=== PATIENT | female | born 1975 | race Caucasian/White ===

== ENCOUNTER 2019-07-13 12:43 | Emergency (ER) | payer OTHER, SELFPAY ==
[2019-07-13 14:46] VITALS: BP 114/62; PULSE 60; RESP 16; TEMP 36.6; O2SAT 100
--- NOTE | 2019-07-13 15:50 | ED.GENADULT ---
HPI - General Adult General Chief complaint: Upper Respiratory Infection Stated complaint: Sore throat cough Time Seen by Provider: 07/13/19 15:50 Source: patient and RN notes reviewed Mode of arrival: ambulatory Limitations: no limitations History of Present Illness HPI narrative: 43-year-old female presents with complaints of upper respiratory infection symptoms, nausea, vomiting, and intermittent abdominal pain, sore throat, sinus congestion, cough, and intermittent headache (not the worst of her life) for 1 day. No treatment. Dry coughing with intermittent productive cough (brown phlegm). Rhinorrhea and nasal congestion. Sore throat bilateral. Hurts to swallow. No voice change. No high fevers, drooling, neck or throat swelling. Exacerbating factors consist of smoke exposure. Nausea, vomiting, and abdominal pain (no abdominal pain @11:00) without blood or coffee ground emesis. Last emesis this morning approximately @02:00. Denies diarrhea, LMP today normal without blood. Tolerating po intake well. Denies dysuria or hematuria. Denies chest pain, dyspnea, coughing up blood, difficulty swallowing, jaw pain, dental pain, facial pain, foreign body sensation, and rash. Remains active. Marlena denies being , LMP 07/03/19. She also says she missed her group drug meeting today and needs a return to note for the meeting. Some parts of this dictation were generated by voice recognition software and may contain typographical and/or grammatical inaccuracies. Related Data Home Medications Medication Instructions Recorded Confirmed buprenorphine [Sublocade] 300 mg SUBCUT WEEKLY 07/13/19 07/13/19 Allergies Allergy/AdvReac Type Severity Reaction Status Date / Time No Known Allergies Allergy Verified 07/13/19 15:32 Review of Systems Review of Systems: Narrative: CONSTITUTIONAL: Denies fever, chills, sweats. EYES: Denies visual changes, redness, discharge. ENT: Complains of rhinorrhea, congestion, sore throat. Denies otalgia. CARDIOVASCULAR: Denies chest pain, palpitations, edema. RESPIRATORY: Denies dyspnea, wheezing. Complains of dry cough,intermittent productive cough. GASTROINTESTINAL: Complains of abdominal pain, nausea, vomiting. Denies diarrhea. GENITOURINARY: Denies dysuria, hematuria, abnormal discharge SKIN: Denies rash or itching. MUSCULOSKELETAL: Denies acute back pain, joint pain, or myalgia. NEUROLOGIC: Denies numbness or focal weakness. PSYCHIATRIC: Denies anxiety or depression. All systems reviewed & are unremarkable except as noted in HPI and below. [facility] Past Medical History Medical History (Updated 07/14/19 @ 00:00 by Stormy Pearl) Substance abuse Surgical History Surgical History (Updated 07/13/19 @ 15:59 by JUVENCIO Zavala) History of repair of anterior cruciate ligament of left knee History of tubal ligation Family History Family History (Updated 07/13/19 @ 15:59 by JUVENCIO Zavala) Other No significant family history Social History Social History (Updated 07/13/19 @ 16:00 by JUVENCIO Zavala) Smoking status: Current every day smoker Tobacco type: cigarettes Second hand tobacco smoke exposure: Yes Alcohol intake: former Substance use: former Substance use type: former substance user Other substance usage details: Marlena says 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 There is no relevant family history pertinent to the presenting complaint. Exam Narrative: Exam Narrative: GENERAL: This is a well-nourished, well-developed patient, in no apparent distress. Speaks in full sentences and ambulates with steady gait without dyspnea. HEAD: normocephalic, atraumatic. EYES: PERRL. Sc
== END 2019-07-13 16:05 | disposition home or self-care (01) ==
PROVIDERS: Emergency Provider Nurse Practitioner Family
DX: B34.9 Viral infection, unspecified (principal); F17.210 Nicotine dependence, cigarettes, uncomplicated
CPT/HCPCS: 99203; G0463

== ENCOUNTER 2020-01-10 08:46 | Emergency (ER) | payer OTHER, SELFPAY ==
[2020-01-10 08:52] VITALS: BP 102/62; PULSE 61; RESP 14; TEMP 36.9; O2SAT 99
--- NOTE | 2020-01-10 08:53 | ED.DENTAL ---
HPI - Dental/Oral General Chief complaint: Dental/Oral Stated complaint: tooth pain/broken tooth Time Seen by Provider: 01/10/20 09:02 Source: patient and RN notes reviewed Mode of arrival: ambulatory Limitations: no limitations History of Present Illness HPI Narrative: 44-year-old female presents with concern for left lower dentalgia. Reports broken teeth, chronic missing teeth in that area. She denies difficulty swallowing, drooling, fever, malaise, foul taste. Reports she has had infections in this area before reports she has been unable to see dentist. MD Complaint: tooth pain Related Data Allergies Allergy/AdvReac Type Severity Reaction Status Date / Time No Known Allergies Allergy Verified 07/13/19 15:32 Review of Systems Review of Systems: Narrative: CONSTITUTIONAL: Denies malaise, chills, sweats, or fever. ENT: Denies rhinorrhea, congestion, sinus pain, otalgia or sore throat. Reports left lower dental pain and swelling CARDIOVASCULAR: Denies chest pain, palpitations RESPIRATORY: Denies cough or dyspnea. GASTROINTESTINAL: Denies abdominal pain, nausea, vomiting MUSCULOSKELETAL: Denies myalgia. NEUROLOGIC: Denies headache. All systems reviewed & are unremarkable except as noted in HPI and below PMFSH Past Medical History Medical History (Updated 01/10/20 @ 09:09 by Radha Vee NP) Substance abuse Surgical History Surgical History (Updated 07/13/19 @ 15:59 by JUVENCIO Zavala) History of repair of anterior cruciate ligament of left knee History of tubal ligation Family History Family History (Updated 07/13/19 @ 15:59 by JUVENCIO Zavala) Other No significant family history Social History Social History (Updated 07/13/19 @ 16:00 by JUVENCIO Zavala) Smoking status: Current every day smoker Tobacco type: cigarettes Second hand tobacco smoke exposure: Yes Alcohol intake: former Substance use: former Substance use type: former substance user Other substance usage details: Marlena says 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 There is no relevant family history pertinent to the presenting complaint Exam Narrative: Exam Narrative: GENERAL: Well-appearing, well-nourished, and in no acute distress. HEAD: Normocephalic, atraumatic. EYES: PERRLA, conjunctivae clear ENT: Nares clear. Mucous membranes moist. Oropharynx without erythema edema, or lesions. Missing teeth, broken teeth. Teeth 22, 21, 20, 19 broken, no periapical abscess noted, no gumline edema or erythema. Mild left lower jaw swelling noted NECK: Supple. No lymphadenopathy. CHEST: No respiratory distress. Speaks in full sentences. HEART: Regular rate and rhythm. SKIN: Warm, dry, no rash. NEURO: Alert and oriented x3. PSYCH: Normal mood and affect Course Course Emergency Course: Patient is aware of diagnosis, understands and agrees to treatment plan. Anticipatory guidance given. Patient agrees to follow-up as directed and is aware of reasons to seek care at the emergency department. Portions of this record may have been created with voice recognition software Vital Signs Vital signs: Vital Signs Temperature 98.4 F 01/10/20 08:52 Pulse Rate 61 01/10/20 08:52 Respiratory Rate 14 01/10/20 08:52 Blood Pressure 102/62 01/10/20 08:52 Pulse Oximetry 99 01/10/20 08:52 Temperature 98.4 F 01/10/20 08:52 Pulse Rate 61 01/10/20 08:52 Respiratory Rate 14 01/10/20 08:52 Blood Pressure 102/62 01/10/20 08:52 Pulse Oximetry 99 01/10/20 08:52 Reviewed. MDM - Dental/Oral MDM Narrative Medical decision making narrative: Patients pain and complaint coupled with physical findings are consistant with dentalgia. There are no focal signs of space occupying lesions that are compromising to the air
== END 2020-01-10 09:20 | disposition home or self-care (01) ==
PROVIDERS: Emergency Provider Nurse Practitioner
DX: K08.89 Other specified disorders of teeth and supporting structures (principal); F17.210 Nicotine dependence, cigarettes, uncomplicated
CPT/HCPCS: 99213; G0463

== ENCOUNTER 2020-12-11 14:08 | Emergency (ER) | payer OTHER, SELFPAY ==
[2020-12-11 14:21] VITALS: BP 118/63; PULSE 64; RESP 18; TEMP 37.2; O2SAT 100
--- NOTE | 2020-12-11 15:06 | ED.GENADULT ---
HPI - General Adult General Chief complaint: Urogenital-Female Stated complaint: Possible UTI Time Seen by Provider: 12/11/20 15:06 Source: patient and RN notes reviewed Mode of arrival: ambulatory Limitations: no limitations History of Present Illness HPI narrative: 45-year-old female presents with urinary complaints for the past 3-4 days. ?Marlena reports increasing urinary complaints and tactile fever over the past 2 days. ? Dysuria consists of cloudy urine, pressure, frequency, flank pain, and urgency. ?Azo, one dose of leftover Amoxicillin, cranberry juice, and increasing intake of water without relief. ?History of UTIs. No significant pelvic pain. ?No vaginal discharge. ?No concerns for STDs. Exacerbating factors urinating. ?Denies hematuria or vaginal bleeding. ?LMP 2 weeks ago. ?Intermittent nausea without vomiting and abdominal pain.? Tolerating liquids well.? Remains active. ?The patient reports she has not been diagnosed with COVID-19. ?The patient reports she received the [employer] COVID-19 vaccine. The patient reports she is not waiting for the results of a COVID-19 lab test. ?The patient reports he does not have chills, weakness, or fatigue. ?The patient reports he does not have a new or worsening cough or shortness of breath. Denies chest pain. ?The patient reports he does not have any rhinorrhea, congestion, loss of taste or smell, sore throat, and diarrhea. ?Denies recent traveling. ?Denies concerns for COVID-19 or exposures. ?At this time, the patient is not suspected of having COVID-19.?? Some parts of this dictation were generated by voice recognition software and may contain typographical and/or grammatical inaccuracies. Related Data Home Medications Medication Instructions Recorded Confirmed buprenorphine-naloxone See Rx Instructions .ROUTE .COMPLEX 12/11/20 12/11/20 naloxone [Narcan] See Rx Instructions .ROUTE .COMPLEX 12/11/20 12/11/20 Allergies Allergy/AdvReac Type Severity Reaction Status Date / Time codeine Allergy Unknown Unknown Verified 12/11/20 14:37 doxycycline AdvReac Nausea and Verified 12/11/20 14:49 Vomiting Review of Systems Review of Systems: CONSTITUTIONAL: Denies chills, sweats. Complains of tactile fever. EYES: Denies visual changes, redness, discharge. ENT: Denies rhinorrhea, congestion, sore throat, otalgia. CARDIOVASCULAR: Denies chest pain, palpitations, edema. RESPIRATORY: Denies dyspnea, wheezing, cough. GASTROINTESTINAL: Denies abdominal pain, vomiting, diarrhea. Complains of intermittent nausea. GENITOURINARY: Complains of dysuria (cloudy, frequency, pressure, and urgency). Denies hematuria, abnormal discharge. SKIN: Denies rash or itching. MUSCULOSKELETAL: Denies acute back pain, joint pain, or myalgia. Complains of flank pain. NEUROLOGIC: Denies numbness or focal weakness. PSYCHIATRIC: Denies anxiety or depression. All systems reviewed & are unremarkable except as noted in HPI and below. [facility] Past Medical History Medical History (Updated 12/12/20 @ 00:01 by Stormy Pearl) Smoker Substance abuse Vaginal delivery X2 Surgical History Surgical History History of repair of anterior cruciate ligament of left knee History of tubal ligation Family History Family History (Updated 12/11/20 @ 15:18 by JUVENCIO Zavala) Other No significant family history Father Hypertension Mother Heart disease Social History Social History (Updated 12/11/20 @ 15:19 by JUVENCIO Zavala) Smoking packs per day: 0.25 Smoking cigarettes per day: 5.0 Years smoked: 25 Smoking pack-years: 6.25 Smoking status: Current every day smoker Tobacco type: cigarettes Second hand tobacco smoke exposure: Yes Alcohol intake: former Substance use: former Substance use type: former substance user Other substance usage details: Marlena says she used to use heroin and fentany
== END 2020-12-11 15:25 | disposition home or self-care (01) ==
PROVIDERS: Emergency Provider Nurse Practitioner Family
DX: R30.0 Dysuria (principal); F17.210 Nicotine dependence, cigarettes, uncomplicated
CPT/HCPCS: 81003; 87077; 87086; 87088; 87186; 99213; G0463

== ENCOUNTER 2021-11-06 17:34 | Emergency (ER) | payer OTHER, SELFPAY ==
[2021-11-06 17:40] VITALS: BP 153/87; PULSE 67; RESP 14; TEMP 36.7; O2SAT 100
--- NOTE | 2021-11-06 17:43 | ED.GENADULT ---
HPI - General Adult General Chief complaint: Urogenital-Female Stated complaint: Left Side Pain Time Seen by Provider: 11/06/21 17:43 Source: patient and RN notes reviewed History of Present Illness HPI narrative: Patient is a 45-year-old female who presents the urgent care with complaints of left side/flank pain for the last week. Patient states that she works from her car and has difficulty stopping to go to the bathroom if necessary. Patient states she does have a history of UTIs but it has been sometime. Patient also reports issues with constipation due to her chronic use of Suboxone and is also seeing a GI doctor for chronic bloating. Patient states that she has been taking Azo with her last dose of last night. Denies any fevers, nausea or vomiting. No other acute complaints. No acute distress noted. Patient aware of the plan of care. Some parts of this dictation were generated by voice recognition software and may contain typographical and/or grammatical inaccuracies. Related Data Home Medications Medication Instructions Recorded Confirmed buprenorphine 4 mg-naloxone 1 mg 1 film sublingual BID 11/06/21 11/06/21 sublingual film (Suboxone) famotidine 20 mg tablet 20 mg PO DAILY 11/06/21 11/06/21 gabapentin 300 mg tablet 300 mg PO DAILY 11/06/21 11/06/21 gabapentin 600 mg tablet 600 mg PO HS 11/06/21 11/06/21 Allergies Allergy/AdvReac Type Severity Reaction Status Date / Time doxycycline AdvReac Nausea and Verified 11/06/21 17:50 Vomiting Review of Systems Review of Systems: CONSTITUTIONAL: Denies fever, chills, or sweats. EYES: Denies visual changes, redness, or discharge. ENT: Denies rhinorrhea, congestion, sore throat, or otalgia. CARDIOVASCULAR: Denies chest pain, palpitations, or edema. RESPIRATORY: Denies cough or dyspnea. GASTROINTESTINAL: Denies abdominal pain, nausea, vomiting, or diarrhea. GENITOURINARY: Reports of urinary frequency, urgency, cloudy urine SKIN: Denies rash or itching. MUSCULOSKELETAL: Denies back pain, joint pain, or myalgia. NEUROLOGIC: Denies headache, numbness, or weakness. All other systems reviewed are negative, except as documented in HPI. [facility] Past Medical History Medical History (Updated 11/06/21 @ 18:12 by JUVENCIO Hyde) Smoker Substance abuse Vaginal delivery X2 Surgical History Surgical History History of repair of anterior cruciate ligament of left knee History of tubal ligation Family History Family History (Updated 12/11/20 @ 15:18 by JUVENCIO Zavala) Other No significant family history Father Hypertension Mother Heart disease Social History Social History (Updated 12/11/20 @ 15:19 by JUVENCIO Zavala) Smoking packs per day: 0.25 Smoking cigarettes per day: 5.0 Years smoked: 25 Smoking pack-years: 6.25 Smoking status: Current every day smoker Tobacco type: cigarettes Second hand tobacco smoke exposure: Yes Alcohol intake: former Substance use: former Substance use type: former substance user Other substance usage details: Marlena says 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 There is no relevant family history pertinent to the patient complaint. Exam Narrative: GENERAL: This is a well-nourished, well-developed patient, in no apparent distress. HEAD: normocephalic, atraumatic. EYES: PERRL. Sclera clear/white. Vision is grossly intact. EARS: External ears normal NOSE: External nose normal with no obvious nasal discharge, nares without redness, no rhinorrhea. THROAT: Mucous membranes moist NECK: Neck supple CARDIOVASCULAR: Regular rate a
== END 2021-11-06 18:15 | disposition home or self-care (01) ==
PROVIDERS: Emergency Provider Nurse Practitioner Family; PCP Nurse Practitioner
DX: N30.90 Cystitis, unspecified without hematuria (principal); F17.210 Nicotine dependence, cigarettes, uncomplicated
CPT/HCPCS: 81003; 99212; G0463

== ENCOUNTER 2022-07-22 15:18 | Emergency (ER) | payer OTHER, SELFPAY ==
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
[2022-07-22 15:30] VITALS: BP 135/75; PULSE 60; RESP 16; TEMP 37.2; O2SAT 100
== END 2022-07-22 16:42 | disposition home or self-care (01) ==
PROVIDERS: Emergency Provider Nurse Practitioner Family; PCP Nurse Practitioner
DX: S16.1XXA Strain of muscle, fascia and tendon at neck level, initial encounter (principal); F17.210 Nicotine dependence, cigarettes, uncomplicated; V49.40XA Driver injured in collision with unspecified motor vehicles in traffic accident, initial encounter; Y92.410 Unspecified street and highway as the place of occurrence of the external cause
CPT/HCPCS: 72040; 99213; G0463

== ENCOUNTER 2023-08-25 18:41 | Emergency (ER) | payer MEDICAID, SELFPAY ==
[2023-08-25 18:46] VITALS: BP 110/61; PULSE 63; RESP 20; TEMP 36.8; O2SAT 100
--- NOTE | 2023-08-25 18:57 | ED.DENTAL ---
HPI - Dental/Oral General Chief complaint: Dental/Oral Stated complaint: Toothache Time Seen by Provider: 08/25/23 18:57 Source: patient, RN notes reviewed and old records reviewed Mode of arrival: ambulatory Limitations: no limitations History of Present Illness HPI Narrative: 47 year old female presents to [facility] care with complaints of dental pain to left upper tooth that is crowned for the past 3 days. Patient does have some redness of gum around tooth but no pustule formation or drainage noted. Patient has been taking Ibuprofen for her discomfort. No facial swelling noted, denies any difficulty with breathing or swallowing. MD Complaint: tooth pain Location: Tooth # (12) Onset (ago): day(s) (3) Severity: moderate Treatment prior to arrival: other (Ibuprofen) Related Data Home Medications Medication Instructions Recorded Confirmed buprenorphine 4 mg-naloxone 1 mg 1 film sublingual BID 11/06/21 08/25/23 sublingual film (Suboxone) famotidine 20 mg tablet 20 mg PO DAILY 11/06/21 08/25/23 gabapentin 600 mg tablet 600 mg PO HS 11/06/21 08/25/23 dicyclomine 10 mg capsule 10 mg PO TID PRN Stomach pain 08/25/23 08/25/23 omeprazole 20 mg capsule,delayed 20 mg PO DAILY 08/25/23 08/25/23 release ondansetron 4 mg disintegrating 4 mg PO PRN PRN Nausea 08/25/23 08/25/23 tablet Allergies Allergy/AdvReac Type Severity Reaction Status Date / Time doxycycline AdvReac Nausea and Verified 08/25/23 18:56 Vomiting Review of Systems Review of Systems: CONSTITUTIONAL: Denies fever, chills, or sweats. ENT: Denies rhinorrhea, congestion, sore throat, or otalgia. Reports dental pain to #12 tooth which has been capped, swelling and some redness of gum surrounding tooth. CARDIOVASCULAR: Denies chest pain, palpitations, or edema. RESPIRATORY: Denies cough or dyspnea. SKIN: Denies rash or itching. MUSCULOSKELETAL: Denies myalgia. NEUROLOGIC: Denies headache All systems reviewed & are unremarkable except as noted in HPI and below PMFSH Past Medical History Medical History (Updated 08/26/23 @ 00:00 by Stormy Pearl) Smoker Substance abuse Vaginal delivery X2 Surgical History Surgical History History of repair of anterior cruciate ligament of left knee History of tubal ligation Family History Family History (Updated 12/11/20 @ 15:18 by JUVENCIO Zavala) Other No significant family history Father Hypertension Mother Heart disease Social History Social History (Updated 08/26/23 @ 15:53 by Cass Milner NP) Smoking packs per day: 0.25 Smoking cigarettes per day: 5.0 Years smoked: 25 Smoking pack-years: 6.25 Smoking status: Former smoker Tobacco type: cigarettes Second hand tobacco smoke exposure: Yes Additional smoking assessment comments: 08/25/2023 quit 1.5years ago Alcohol intake: former Substance use: former Substance use type: former substance user Other substance usage details: Marlena says 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 There is no relevant family history pertinent to the presenting complaint Exam Narrative: GENERAL: Well-appearing, well-nourished, and in no acute distress. HEAD: Normocephalic, atraumatic. EYES: PERRLA and EOMI. ENT: Nares clear, no rhinorrhea or epistaxis. Mucous membranes moist. Patient has crown to #12 tooth and is having pain when bites down with redness of gum around tooth, no facial swelling, NECK: Supple. no lymphadenopathy CHEST: Clear to auscultation. No respiratory distress. SAO2 100% on room a
== END 2023-08-25 19:15 | disposition home or self-care (01) ==
PROVIDERS: Emergency Provider Registered Nurse; PCP Nurse Practitioner
DX: K04.7 Periapical abscess without sinus (principal); Z87.891 Personal history of nicotine dependence
CPT/HCPCS: 99213; G0463

== ENCOUNTER 2023-10-16 17:37 | Emergency (ER) | payer OTHER, SELFPAY ==
[2023-10-16 17:44] VITALS: BP 124/68; PULSE 66; RESP 20; TEMP 36.5; O2SAT 98
--- NOTE | 2023-10-16 17:51 | ED.DENTAL ---
HPI - Dental/Oral General Chief complaint: Dental/Oral Stated complaint: Tooth pain Time Seen by Provider: 10/16/23 17:40 History of Present Illness HPI Narrative: Pt is a 47 y/o female, presents to with left upper dental pain, onset 2 months ago. She was evaluated here and prescribed PCN, which she completed with some mild improvement in her symptoms until two weeks ago when her pain began to return. She denies associated fevers, drainage from the affected tooth or facial swelling. She has an appointment with the dentist scheduled for Mid October as the earliest available, prompting her visit. She denies any other associated symptoms. She is taking Ibuprofen without much relief. Related Data Home Medications Medication Instructions Recorded Confirmed buprenorphine 4 mg-naloxone 1 mg 1 film sublingual BID 11/06/21 10/16/23 sublingual film (Suboxone) gabapentin 600 mg tablet 600 mg PO HS 11/06/21 10/16/23 dicyclomine 10 mg capsule 10 mg PO TID PRN Stomach pain 08/25/23 10/16/23 omeprazole 20 mg capsule,delayed 20 mg PO DAILY 08/25/23 10/16/23 release ondansetron 4 mg disintegrating 4 mg PO PRN PRN Nausea 08/25/23 10/16/23 tablet Allergies Allergy/AdvReac Type Severity Reaction Status Date / Time doxycycline AdvReac Nausea and Verified 08/25/23 18:56 Vomiting Review of Systems Constitutional: Comments: refer to HPI ENT: Comments: refer to HPI [facility] Past Medical History Medical History Smoker Substance abuse Vaginal delivery X2 Surgical History Surgical History History of repair of anterior cruciate ligament of left knee History of tubal ligation Family History Family History (Updated 12/11/20 @ 15:18 by JUVENCIO Zavala) Other No significant family history Father Hypertension Mother Heart disease Social History Social History (Updated 08/26/23 @ 15:53 by Cass Milner NP) Smoking packs per day: 0.25 Smoking cigarettes per day: 5.0 Years smoked: 25 Smoking pack-years: 6.25 Smoking status: Former smoker Tobacco type: cigarettes Second hand tobacco smoke exposure: Yes Additional smoking assessment comments: 08/25/2023 quit 1.5years ago Alcohol intake: former Substance use: former Substance use type: former substance user Other substance usage details: Marlena says 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 Last use: Clean for 4 years Living arrangements: with family Occupation/Education: unemployed Gender identity (if verbalized by the patient): Female Sexual Orientation (if Verbalized by the Patient): Straight or Heterosexual Exam Const: General: healthy appearing Nutritional Appearance: well nourished Orientation/consciousness: patient oriented x3 Limitations: no limitations HENMT: Head: normal to inspection Ears: external ears normal and TM's normal bilaterally Face/Nose/Sinus: Normal external nose present and Normal nares present Face and sinus: normal facial exam Mouth: Yes Normal oral and palatal mucosa present Throat: posterior oropharynx normal and uvula midline Other: left upper premolar has a crown in place. The gingiva is swollen and erythematous. No fluctuance noted. No trismus Eyes: Conjunctivae: conjunctivae normal Pupils: Equal, round and reactive pupils present EOM: EOMs intact bilaterally Neck: Neck: normal visual inspection, no lymphadenopathy and no meningeal signs Resp: Effort & Inspection: normal respiratory effort Auscultation: clear to auscultation bilaterally Cardio: Rate: regular rate Rhythm: regular rhythm Skin: General skin exam: normal color Rashes: no rashes Wounds: no wounds Neuro: General: patient oriented x3, moves all extremities, no meningeal signs, no focal motor deficits and CN's II-XI intact bilaterally Cranial nerves
== END 2023-10-16 18:01 | disposition home or self-care (01) ==
PROVIDERS: Emergency Provider Nurse Practitioner Family; PCP Nurse Practitioner
DX: K08.89 Other specified disorders of teeth and supporting structures (principal); G50.1 Atypical facial pain; Z87.891 Personal history of nicotine dependence
CPT/HCPCS: 99213; G0463

== ENCOUNTER 2024-06-28 15:19 | Emergency (ER) | payer OTHER, SELFPAY ==
[2024-06-28 15:24] VITALS: BP 139/95; PULSE 92; RESP 16; TEMP 36.8; O2SAT 100
--- NOTE | 2024-06-28 15:35 | ED.DENTAL ---
HPI - Dental/Oral General Chief complaint: Dental/Oral Stated complaint: tooth extraction issues Time Seen by Provider: 06/28/24 15:36 Source: patient Mode of arrival: ambulatory History of Present Illness HPI Narrative: 48-year-old female presented for complaint of left upper dental pain following a 2 extraction 2 weeks ago. Patient states that the time the tooth is extracted she had an abscess. She did not have antibiotics prior to or after the tooth extraction. Endorses the gumline is swollen and raw. Denies drainage, n/v/d/f/c. Takes occasional ibuprofen. Says she did 'not bother' to follow up with the dentist because they are difficult to get an appointment. MD Complaint: tooth pain Related Data Home Medications ?Medication ?Instructions ?Recorded ?Confirmed ?Last Taken ?Type buprenorphine 4 mg-naloxone 1 mg 1 film sublingual BID 11/06/21 10/16/23 Unknown History sublingual film (Suboxone) gabapentin 600 mg tablet 600 mg PO HS 11/06/21 10/16/23 Unknown History dicyclomine 10 mg capsule 10 mg PO TID PRN Stomach pain 08/25/23 10/16/23 Unknown History omeprazole 20 mg capsule,delayed 20 mg PO DAILY 08/25/23 10/16/23 Unknown History release ondansetron 4 mg disintegrating 4 mg PO PRN PRN Nausea 08/25/23 10/16/23 Unknown History tablet Allergies Allergy/AdvReac Type Severity Reaction Status Date / Time doxycycline AdvReac Nausea and Verified 08/25/23 18:56 Vomiting Review of Systems Review of Systems: CONSTITUTIONAL: Denies body aches, fever, chills ENT: Denies rhinorrhea, congestion, sore throat, or otalgia. Reports dental pain CARDIOVASCULAR: Denies chest pain, palpitations RESPIRATORY: Denies cough or dyspnea. SKIN: Denies rash, itching, or wounds. MUSCULOSKELETAL: Denies myalgia. NEUROLOGIC: Denies headache, numbness, tingling, or weakness. [facility] Past Medical History Medical History Smoker Substance abuse Vaginal delivery X2 Surgical History Surgical History History of repair of anterior cruciate ligament of left knee History of tubal ligation Family History Family History (Updated 12/11/20 @ 15:18 by JUVENCIO Zavala) Other No significant family history Father Hypertension Mother Heart disease Social History Social History (Updated 08/26/23 @ 15:53 by Cass Milner NP) Smoking packs per day: 0.25 Smoking cigarettes per day: 5.0 Years smoked: 25 Smoking pack-years: 6.25 Smoking status: Former smoker Tobacco type: cigarettes Second hand tobacco smoke exposure: Yes Additional smoking assessment comments: 08/25/2023 quit 1.5years ago Alcohol intake: former Substance use: former Substance use type: former substance user Other substance usage details: Marlena says 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 Please see nursing chart for further information. There is no relevant family history pertinent to the presenting complaint Exam Narrative: GENERAL: Appears in pain; no acute distress. HEAD: Normocephalic, atraumatic. EYES: EOMI. No redness or drainage. Conjunctivae normal. ENT: Dental pain location of #11; tooth has been extracted, mild gum swelling noted. No drainage. Mucous membranes pink and moist. TMs normal bilaterally. Throat normal. no dysphagia, odynophagia, dysphonia, or dyspnea. No uvular deviation or soft palate edema. NECK: Normal AROM. No lymphadenopathy. no induration below mandible, no neck pain. CHEST: No respiratory distress. Clear to auscultation. HEART: Regular rate and rhythm. No murmur appreciated. SKIN: Warm, dry, no rash. Normal skin turgor. NEURO: No focal deficits. Alert and oriented x3. Gait steady. Course Course Emergency Course: Patient is aware of diagnosis, understands and agrees to treatment plan. Anticipatory guidance given. Patient agrees to follow-up as directed and is aware of reasons to seek care at the emergency department. Portions of this record may have been created with voice recognition software Level of Care: Express Care Visit Vital Signs Vital signs: Vital Signs Temperature 98.2 F 06/28/24 15:24 Pulse Rate 92 06/28/24 15:24 Respiratory Rate 16 06/28/24 15:24 Blood Pressure 139/95 H 06/28/24 15:24 Pulse Oximetry 100 06/28/24 15:24 Oxygen Delivery Room Air 06/28/24 15:24 Temperature 98.2 F 06/28/24 15:24 Pulse Rate 92 06/28/24 15:24 Respiratory Rate 16 06/28/24 15:24 Blood Pressure 139/95 H 06/28/24 15:24 Pulse Oximetry 100 06/28/24 15:24 Oxygen Delivery Room Air 06/28/24 15:24 MDM - Dental/Oral MDM Narrative Medical decision making narrative: Patients pain and complaint coupled with physical findings are consistent with dental abscess. pt's tooth has been extracted. There are no focal signs of space occupying lesions that are compromising to the airway; Patient is non-toxic appearing. The floor of the mouth is soft with no signs of Dilan's Angina; Patient is without trismus or drooling and able to swallow secretions. Patient is felt appropriate for discharge home with dental follow up. Differential Diagnosis Differential diagnosis: Likely gingival abscess, dental caries, toothache, dental abscess, fracture of tooth and aphthous ulcer Discharge Plan Discharge Clinical Impression: Toothache Patient Disposition: Home, Self-Care Condition: Stable Instructions: Antibiotic Form, Dental Abscess (ED) Additional Instructions: Take antibiotic as directed May apply heat or ice to the face Gentle brushing and flossing. Rinse mouth with warm salt water at least 2 times a day. Alternate Tylenol and ibuprofen as needed for pain Follow-up with the dentist as soon as possible Go to the ER for worsening symptoms or concerns Patient Language: [place] Prescriptions: New amoxicillin-pot clavulanate 875-125 mg tablet 1 tablet PO Q12H 7 Days Qty: 14 0RF No Action buprenorphine-naloxone [Suboxone] 4-1 mg Film 1 film SUBLINGUAL BID gabapentin 600 mg Tablet 600 mg PO HS omeprazole 20 mg Capsule,Delayed Release(Dr/Ec) 20 mg PO DAILY ondansetron 4 mg tablet,disintegrating 4 mg PO PRN PRN (Reason: Nausea) dicyclomine [Bentyl] 10 mg Capsule 10 mg PO TID PRN (Reason: Stomach pain) Follow-up/Referrals: Luis,Jose Harrison APRN [Primary Care Provider] - Time of Disposition: 15:41
== END 2024-06-28 15:45 | disposition home or self-care (01) ==
PROVIDERS: Emergency Provider Nurse Practitioner Family; PCP Nurse Practitioner
DX: K08.89 Other specified disorders of teeth and supporting structures (principal); Z87.891 Personal history of nicotine dependence
CPT/HCPCS: 99213; G0463

== ENCOUNTER 2025-01-01 16:31 | Emergency (ER) | payer OTHER, SELFPAY ==
--- OUTSIDE RECORDS SUMMARY | 2024-12-09 05:20 | XMS_ITS ---
Author Organization [facility] Address [address] [place] [address] Care Team Providers Care Machine Clerical Verifier Name Role Phone Jose Smith Primary Care Provider Michael Rodgers [phone] REASON FOR VISIT PCP FU Social History Sex Assigned At : Social History Observation Description Sex Assigned At Female Encounters Encounter Location Date Provider Diagnosis [address] [place] [address] 12/09/2024 Michael Rodgers Plan Of Treatment Next Appt Details Provider Name:Michael Rodgers , 01/10/2025 10:20:00 AM, [address], [place], [address], Progress Notes * AZALEAJosephgiovaniieDOB:1975 (49 yo F)Acc No.[id number]:12/09/2024 UNLOCKED PROGRESS NOTE Progress Notes Patient: Marlena GUERRERO Provider: Madhavi Rodgers :1975 A ge:49 Y S ex:Female Date:12/09/2024 [address] [place] [place], [place] Pcp:Jose Smith Subjective: * Chief Complaints: * 1 . PCP FU. * Medical History: Objective: * Vitals: Assessment: Plan: * Treatment: * * Electronic signature of Tom Rodgers , [id number] on 01/01/2025 at 04:35 PM CDT Sign off status: Pending * Provider: Madhavi Rodgers Date: 0 12/09/2024 Generated for Joon modi/Mike/Elisha on: 0 01/01/2025 04:35 PM CDT
[2025-01-01 16:34] VITALS: BP 129/72; PULSE 63; RESP 20; TEMP 36.8; O2SAT 100
--- OUTSIDE RECORDS SUMMARY | 2025-01-01 16:35 | XMS_ITS | Clinical Summary ---
Author Organization [facility] Address [address] [place] [address] Phone Care Team Providers Care Certified Medicine Aide Name Role Phone Jose Smith APRN, ORDER TAKER Primary Care Provid er Minda Nelson MD Unavailable [phone] Jeane Velasco APRN, ORDER TAKER Unavailable Reece Nicolas MD Unavailable [phone] Allergies No known active allergies Medications gabapentin (NEURONTIN) 600 MG Tablet Take 600 mg by mouth 3 times daily. Active Buprenorphine HCl-Naloxone HCl 4-1 MG FILMIndications :RELATED TO HX DRUG ABUSE 1 Film by Sublingual route in the morning and at bedtime. Indications: RELATED TO HX DRUG ABUSE Active Multiple Vitamin (MULTI-VITAMIN PO) Take by mouth daily. HOLD FOR 5 DAYS PRIOR TO PROCEDURE Active melatonin 3 MG Tablet Take 5 mg by mouth nightly as needed. Active omeprazole (PriLOSEC) 20 MG CAPSULE DELAYED RELEASE Take 20 mg by mouth daily. Takes 1 capsule daily in the morning Active dicyclomine (BENTYL) 20 MG Tablet Take 1 Tablet by mouth 2 times daily as needed (abdominal pain). 60 Tablet 2 4 Active ondansetron (ZOFRAN-ODT) 4 MG TABLET DISPERSIBLEIndi cations:Nausea Take 1 Tablet by mouth every 8 hours as needed for Nausea - 1st line. 30 Tablet Active Additional Information Patient not taking.Reported on 01/05/2024 Active Problems Problem Noted Date Diagnosed Date Abdominal pain 08/21/2021 SBO (small bowel obstruction) 08/21/2021 Leukocytosis 08/21/2021 Head lice 01/15/2017 Psychophysiological insomnia 03/29/2016 Depression 12/12/2015 Chronic pain of left knee 12/12/2015 Chronic midline low back pain with sciatica 11/26 Immunizations Immunization Administration Dates Next Due Covid-19 Vaccine, Vector-nr, Rs-ad26, Pf, 0.5 Ml ([employer]) 11/14/2020 Family History Medical History Relation Name Comments Colon Cancer Brother No Known Problems Daughter 1 No Known Problems Daughter 2 Diabetes Father Hypertension Father Prostate Cancer Father Chronic Obstructive Pulmonary Disease Mother Heart Attack Mother Heart Disease Mother Relation Name Status Comments Brother Alive Daughter 1 Alive Daughter 2 Alive Father Alive Mother Social History Tobacco Use Types Packs/Day Years Used Date Smoking Tobacco: Former Cigarettes 0.5 29 1 - 2020 Smokeless Tobacco: Never Tobacco Cessation:Counseling Given: Not Answered Alcohol Use Standard Drinks/Week Comments No 0 (1 standard drink = 0.6 oz pur e alcohol) Sexually Active Control Partners Comments Yes Surgical Male Comments No Sex and Gender Information Value Date Recorded Sex Assigned at Not on file Legal Sex Female 10:45 PM CDT Gender Identity Not on file Sexual Orientation Not on file Last Filed Vital Signs Vital Sign Reading Time Taken Comments Blood Pressure 114/76 01/05/2024 9:49 AM CDT Pulse 60 01/05/2024 9:49 AM CDT Temperature 36.5 C (97.7 F) 01/05/2024 9:49 AM CDT Respiratory Rate 16 12/23/2023 1:55 PM CDT Oxygen Saturation 100% 01/05/2024 9:49 AM CDT Inhaled Oxygen Concentration - - Weight 73.4 kg (161 lb 12.8 oz) 01/05/2024 9:49 AM CDT Height 162.6 cm (5' 4) 01/05/2024 9:49 AM CDT Body Mass Index 27.77 01/05/2024 9:49 AM CDT Plan of Treatment Health Maintenance Due Date Last Done Comments Hepatitis C Virus (HCV) Screening 1975 Mammogram 1975 TdaP Immunization 1975 Hepatitis B Immunization (1 of 3 - 19+ 3-dose series) 1992 HPV/Cotest 11/21/2003 Cologuard 2018 Immunochemical Fecal Occult Blood 2018 Pneumococcal Immunization (5 0+ years) (1 of 1 - PCV) 11/21/2023 Zoster Immunization (1 of 2) 11/21/2023 Influenza Immunization (#1) 2024 SARS-COV-2 Immunization (2 - season) 2024 11/14/2020 Colonoscopy 12/04/2026 12/04/2021 Colorectal Cancer Screening 12/04/2026 Respiratory Syncytial Virus (RSV) Immunization (Adult) (1 - 1-dose 75+ series) 2048 Cervical Cancer Screening (CCS) Discontinued Human Papillomavirus (HPV) Immunization Aged Out No longer eligible b ased on patient's age to complete this topic Meningococcal Immunization (ACWY) Aged Out No longer eligible based on patient's age to complete this topic Pap Smear Discontinued Rotavirus Immunization Aged Out No lo nger eligible based on patient's age to complete this topic Insurance MEDICAID [employer] Advance Directives * Full Code (Latest Code Status on File) Date Activated Date Inactivated Comments 08/21/2021 12:35 PM 08/21/2021 3:44 PM CPR-Full Tr eatment: FULL ARREST: Attempt Resuscitation/CPR wit intubation and mechanical ventilation. PRE-ARREST: Use entire range of life support measures to stabilize the patient. Care Teams Certified Medicine Aide Relationship Specialty Start Date End Date Jose Smith APRN, ORDER TAKER PCP - General Advanced Practice Nurse 08/21/21 Minda Nelson MD [address] [place] [address] Consulting Physician Gastroenterology 05/02/22 Jeane Velasco APRN, ORDER TAKER [address] [place] [address] Nurse Practitioner Advanced Practice Nurse 08/20/23 Reece Nicolas MD [address] [address] Consulting Physician General Surgery 12/12/23
--- OUTSIDE RECORDS SUMMARY | 2025-01-01 16:35 | XMS_ITS | Patient Health Record ---
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 Name Role Phone Jose Smith Primary Care Provider Libby Sherwood Unavailable [phone] Michael Rodgers Unavailable [phone] Marlena Gant Unavailable Alicia Durham Unavailable [phone] Emma Sy Unavailable [phone] Allergies No Known Allergies Results Component Value Reference Range Notes 12 Panel Urine Drug Screen Reviewed date:06/22/2024 10:27:47 AM Interpretation: Performing Lab: Notes/Report: THC neg LI neg MOP (OPI) neg AMP neg MET neg BAR neg BZO neg MDMA neg MTD neg OXY neg PCP neg BUP POS 14 Panel Urine Drug Screen Reviewed date:12/09/2024 10:58:57 AM Interpretation: Performing Lab: Notes/Report: THC neg LI neg MOP (OPI) neg AMP neg MET neg BAR neg BZO neg MDMA neg MTD neg OXY neg PCP neg BUP POS TCA neg FTY neg Buprenorphine and Metabolite (Urine test) Reviewed date:05/05/2024 10:12:57 AM Interpretation: Performing Lab:[facility], [address], [place], Phone - [phone], Director - PhDAbudu Notes/Report: Clinical Information:[id number] Buprenorphine Positive Confirmation p erformed by Mass Spectrometry Buprenorphine Positive Buprenorphine Conf, MS, UR 550 Cutoff=10 ng/m L Norbuprenorphine Positive Norbuprenorphine Conf, MS, UR 3175 Cutoff=10 n g/mL 12 Panel Urine Drug Screen Reviewed date:04/26/2024 01:41:31 PM Interpretation: Performing Lab: Notes/Report: THC neg LI neg MOP (OPI) neg AMP neg MET neg BAR neg BZO neg MDMA neg MTD neg OXY neg PCP neg BUP POS 14 Panel Urine Drug Screen Reviewed date:10/14/2024 09:56:39 AM Interpretation: Performing Lab: Notes/Report: THC neg LI neg MOP (OPI) neg AMP neg MET neg BAR neg BZO neg MDMA neg MTD neg OXY neg PCP neg BUP POS TCA neg FTY neg 12 Panel Urine Drug Screen Reviewed date:07/21/2024 10:31:23 AM Interpretation: Performing Lab: Notes/Report: THC neg LI neg MOP (OPI) neg AMP neg MET neg BAR neg BZO neg MDMA neg MTD neg OXY neg PCP neg BUP POS 12 Panel Urine Drug Screen Reviewed date:08/20/2024 10:41:41 AM Interpretation: Performing Lab: Notes/Report: THC neg LI neg MOP (OPI) neg AMP neg MET neg BAR neg BZO neg MDMA neg MTD neg OXY neg PCP neg BUP POS 12 Panel Urine Drug Screen Reviewed date:01/30/2024 11:05:27 AM Interpretation: Performing Lab: Notes/Report: THC neg LI neg MOP (OPI) neg AMP neg MET neg BAR neg BZO neg MDMA neg MTD neg OXY neg PCP neg BUP POS 14 Panel Urine Drug Screen Reviewed date:11/11/2024 10:38:33 AM Interpretation: Performing Lab: Notes/Report: THC neg LI neg MOP (OPI) neg AMP neg MET neg BAR neg BZO neg MDMA neg MTD neg OXY neg PCP neg BUP POS TCA neg FTY neg Buprenorphine and Metabolite (Urine test) Reviewed date:11/15/2024 10:01:56 AM Interpretation: Performing Lab:[facility], [address] [facility], [place], Phone - [phone], Director - PhDAbudu Notes/Report: Clinical Information:[id number]:[id number] LM Buprenorphine Positive Confirmation p erformed by Mass Spectrometry Buprenorphine Positive Buprenorphine Conf, MS, UR 434 Cutoff=10 ng/m L Norbuprenorphine Positive Norbuprenorphine Conf, MS, UR 1435 Cutoff=10 n g/mL 12 Panel Urine Drug Screen Reviewed date:09/15/2024 01:36:02 PM Interpretation: Performing Lab: Notes/Report: THC neg LI neg MOP (OPI) neg AMP neg MET neg BAR neg BZO neg MDMA neg MTD neg OXY neg PCP neg BUP POS 12 Panel Urine Drug Screen Reviewed date:02/27/2024 10:40:06 AM Interpretation: Performing Lab: Notes/Report: THC NEG LI NEG MOP (OPI) NEG AMP NEG MET NEG BAR NEG BZO NEG MDMA NEG MTD NEG OXY NEG PCP NEG BUP POS 12 Panel Urine Drug Screen Reviewed date:03/29/2024 10:28:08 AM Interpretation: Performing Lab: Notes/Report: THC neg LI neg MOP (OPI) neg AMP neg MET neg BAR neg BZO neg MDMA neg MTD neg OXY neg PCP neg BUP POS 12 Panel Urine Drug Screen Reviewed date:05/25/2024 10:36:37 AM Interpretation: Performing Lab: Notes/Report: THC neg LI neg MOP (OPI) neg AMP neg MET neg BAR neg BZO neg MDMA neg MTD neg OXY neg PCP neg BUP POS Reason For Referral Reason Counseling/Therapy Diagnosis 1 Opioid use disorder (F11.99) Referral Organization [facility] Referring Provider First Name Alicia Referring Provider Last Name Marva Referring Provider Speciality Psychiatry Referred Provider Specialty Behavioral [facility] Clinical Notes Emma Sy 03:08:39 PM >See CM note. Referral Priority Routine Reason WELL WOMAN EXAM OVER DUE AND HAS SYMPTOMS OF MENOPAUSE Diagnosis 1 Menopausal disorder (N95.9) Referral Organization [facility] Referring Provider First Name Michael Referring Provider Last Name Ana Maria Referring Provider Speciality Internal M edicine Referred Provider Specialty Hall Tender General Notes Christi Collins 0 08/25/2024 01:35:36 PM > Referral faxed to [facility] via eCW, letter mailed to pt. Clinical Notes [facility] , [address] [place] [address], [address], phone , fax Referral Priority Routine Medications Medication SIG (Take, Route, Frequency, Duration) Notes Start Date End Date Status Melatonin 5 MG 1 tablet in the even ing Orally at night; Duration: 30 days 07/25/2020 Active Buprenorphine HCl-Naloxone HCl 4-1 MG 1 film under the tongue and allow to dissolve Sublingual Once a day (PM); Duration: 30 days 12/09/2024 Active Gabapentin 600 MG 1 tablet Orally thre e times daily; Duration: 30 days Active Buprenorphine HCl-Naloxone HCl 8-2 MG 1 film under the tongue and allow to dissolve Sublingual Once a day (AM); Duration: 30 days 12/09/2024 Active Flonase 50 MCG/ACT 2 spray in each nostril Nasally Once a day; Duration: 30 days at night 09/19/2020 Active Immunizations Vaccine Route Administration Date Status Comme nts FLU VAC NO PRSV 4VAL 6 mo+ IM Intramuscular 02/15/2019 Administered Pt tolerated injection well. Voived no questions or concerns. Social History Tobacco Use: Social History Observation Description Date Details (start date - stop date) Unknown Sex Assigned At : Social History Observation Description Sex Assigned At Female Alcohol Screen (Audit-C) Question Answer Notes Did you have a drink containing alcohol in the p ast year? No Tobacco Control (Standard) Question Answer Notes Tobacco use: Uses tobacco in other forms Additional Findings: Tobacco user e-cigarette Problems Problem Type SNOMED Code ICD Code Onset Dates Problem Status W/U Status Risk Notes Problem Tobacco user (324319049) Nicotine dependence, unspecified, uncomplicated (F17.200) Active confirmed Problem Major depression, single episode (17751594) Major depressive disorder, single episode, unspecified (F32.9) 9 Active confirmed Problem Primary insomnia (3486582) Primary insomnia (F51.01) Active confirmed Problem Anxiety (18206820) Anxiety (F41.9) Active confirmed Problem Laboratory test result abnormal (564992701) Abnormal laboratory test (R89.9) Active confirmed Problem Overweight (906732092) Over weight (E66.3) Active confirmed Problem Overweight (185409942) Overweight (BMI 25.0-29.9) (E66.3) Active confirmed Problem Constipation (63082530) Constipation, unspecified constipation type (K59.00) Active confirmed Problem Fatigue (50078670) Fatigue, unspecified type (R53.83) Active confirmed Problem Mammography abnormal (715562091) Abnormal mammogram of right breast (R92.8) Active confirmed Problem Menopausal syndrome (disorder) (290108686) Menopausal disorder (N95.9) Active confirmed Problem Tobacco use (015494377) Tobacco use disorder (F17.200) Active confirmed Problem Opioid dependence (08981406) Opioid use disorder, severe, dependence (F11.20) Active confirmed Problem Seasonal allergic rhinitis (828826299) Seasonal allergic rhinitis, unspecified trigger (J30.2) Active confirmed Problem Opioid use disorder (2095898807) Opioid use disorder (F11.99) Active confirmed Vital Signs Heart Rate 63 /min 12/09/2024 Temperature 98.2 degrees Fahrenheit 07/21/2024 Respiratory Rate 16 /min 12/09/2024 Oximetry 99 % 12/09/2024 Blood pressure diastolic 78 mm Hg 12/09/2024 Height 65 in 12/09/2024 Blood pressure systolic 110 mm Hg 12/09/2024 Weight 159.2 lbs 12/09/2024 BMI 26.49 kg/m2 12/09/2024 Encounters Encounter Location Date Provider Diagnosis [address] [address] 01/30/2024 Jenia Heavemarii Opioid use disorder F11.99 ; Overweight (BMI 25.0-29.9) E66.3 and Tobacco use disorder F17.[address] [address] 02/27/2024 Jenia Heavemarii Opioid use disorder F11.99 ; Overweight (BMI 25.0-29.9) E66.3 and Tobacco use disorder F17.[address] [address] 03/29/2024 Alicia Durham Opioid use disorder F11.99 ; Nicotine dependence, unspecified, uncomplicated F17.200 ; Overweight (BMI 25.0-29.9) E66.3 and Nutritional counseling Z71.[address] [address] 04/09/2024 Jose Smith Oral infection K12.2 ; Overweight (BMI 25.0-29.9) E66.3 ; Nutritional counseling Z71.3 and Nicotine dependence, unspecified, uncomplicated F17.[address] [address] 04/26/2024 Alicia Szlufik Opioid use disorder F11.[address] [address] 05/25/2024 Alicia Szlufik Opioid use disorder, severe, dependence F11.[address] [address] 06/22/2024 Alicia Szlufik Opioid use disorder F11.[address] [address] 07/21/2024 Alicia Szlufik Opioid use disorder F11.99 ; Nutritional counseling Z71.3 and Nicotine dependence, unspecified, uncomplicated F17.[address] [address] 07/28/2024 Emma Sy Anxiety F41.[address] [address] 08/02/2024 Michael Rodgers Neuropathic pain M79.2 ; Seasonal allergic rhinitis, unspecified trigger J30.2 and Menopausal disorder N95.[address] [address] 08/20/2024 Libby Sherwood Opioid use disorder F11.99 ; Overweight (BMI 25.0-29.9) E66.3 and Nicotine dependence, unspecified, uncomplicated F17.[address] [address] 09/15/2024 Alicia Szlufik Opioid use disorder F11.99 and Over weight E66.[address] [address] 10/14/2024 Alicia Szlufik Opioid use disorder F11.99 and Over weight E66.[address] [address] 11/11/2024 Marlena Suncornelio Opioid use disorder F11.99 and Nicotine dependence, unspecified, uncomplicated F17.[address] [place] [address] 12/09/2024 Alicia Marva Opioid use disorder F11.99 and Over weight E66.[address] [place] [address] 07/21/2024 Michael Rodgers Oral infection K12.2 and Opioid use disorder, severe, dependence F11.20 Assessments Encounter Date Diagnosis (ICD Code) Assessment Notes Treatment Notes Treatment Clinical Notes Section Notes 08/02/2024 Neuropathic pain (ICD-10 - M79.2) 08/02/2024 Seasonal allergic rhinitis, unspecified trigger (ICD-10 - J30.2) 07/28/2024 Anxiety (ICD-10 - F41.9) 07/21/2024 Oral infection (ICD-10 - K12.2) 07/21/2024 Opioid use disorder (ICD-10 - F11.99) 05/25/2024 Opioid use disorder, severe, dependence (ICD-10 - F11.20) 04/26/2024 Opioid use disorder (ICD-10 - F11.99) 04/09/2024 Oral infection (ICD-10 - K12.2) Abx as prescribed, f/u in 1 week if not improved, keep appt. with dentist. 03/29/2024 Nicotine dependence, unspecified, uncomplicated (ICD-10 - F17.200) 04/09/2024 Overweight (BMI 25.0-29.9) (ICD-10 - E66.3) 03/29/2024 Opioid use disorder (ICD-10 - F11.99) 01/30/2024 Overweight (BMI 25.0-29.9) (ICD-10 - E66.3) 01/30/2024 Opioid use disorder (ICD-10 - F11.99) 12/09/2024 Over weight (ICD-10 - E66.3) 12/09/2024 Opioid use disorder (ICD-10 - F11.99) 11/11/2024 Nicotine dependence, unspecified, uncomplicated (ICD-10 - F17.200) 11/11/2024 Opioid use disorder (ICD-10 - F11.99) 06/22/2024 Opioid use disorder (ICD-10 - F11.99) 10/14/2024 Over weight (ICD-10 - E66.3) 10/14/2024 Opioid use disorder (ICD-10 - F11.99) 09/15/2024 Over weight (ICD-10 - E66.3) 09/15/2024 Opioid use disorder (ICD-10 - F11.99) 08/20/2024 Overweight (BMI 25.0-29.9) (ICD-10 - E66.3) 08/20/2024 Opioid use disorder (ICD-10 - F11.99) 02/27/2024 Overweight (BMI 25.0-29.9) (ICD-10 - E66.3) 02/27/2024 Opioid use disorder (ICD-10 - F11.99) 02/27/2024 Tobacco use disorder (ICD-10 - F17.200) 08/20/2024 Nicotine dependence, unspecified, uncomplicated (ICD-10 - F17.200) 01/30/2024 Tobacco use disorder (ICD-10 - F17.200) 04/09/2024 Nutritional counseling (ICD-10 - Z71.3) 03/29/2024 Overweight (BMI 25.0-29.9) (ICD-10 - E66.3) 07/21/2024 Nutritional counseling (ICD-10 - Z71.3) 07/21/2024 Opioid use disorder, severe, dependence (ICD-10 - F11.20) 08/02/2024 Menopausal disorder (ICD-10 - N95.9) 07/21/2024 Nicotine dependence, unspecified, uncomplicated (ICD-10 - F17.200) 04/09/2024 Nicotine dependence, unspecified, uncomplicated (ICD-10 - F17.200) 03/29/2024 Nutritional counseling (ICD-10 - Z71.3) 01/30/2024 Other Patient agrees to take medication as prescribed. Discussed medication side effects, adverse effects, risks, benefits, as well as interactions. Encouraged non-use of opioids. Has naloxone. Recommended participation in recovery groups and/or counseling services. May contact office with questions or concerns. 02/27/2024 Other Patient agrees to take medication as prescribed. Discussed medication side effects, adverse effects, risks, benefits, as well as interactions. Encouraged non-use of opioids. Has naloxone. Recommended participation in recovery groups and/or counseling services. May contact office with questions or concerns. 03/29/2024 Other Patient agrees to take medication as prescribed. Discussed medication side effects, adverse effects, risks, benefits, as well as interactions. Encouraged non-use of opioids and other illicit substances. Has naloxone. Discontinuing buprenorphine increases the risk of overdose upon return to illicit opioid use. Use of alcohol or benzodiazepines with buprenorphine increases the risk of overdose and . Education provided about safe storage of medications. Encouraged participation in recovery groups/counseling services. Contact office with questions or concerns. 04/26/2024 Other Patient agrees to take medication as prescribed. Discussed medication side effects, adverse effects, risks, benefits, as well as interactions. Encouraged non-use of opioids and other illicit substances. Has naloxone. Discontinuing buprenorphine increases the risk of overdose upon return to illicit opioid use. Use of alcohol or benzodiazepines with buprenorphine increases the risk of overdose and . Education provided about safe storage of medications. Encouraged participation in recovery groups/counseling services. Contact office with questions or concerns. 05/25/2024 Other Patient agrees to take medication as prescribed. Discussed medication side effects, adverse effects, risks, benefits, as well as interactions. Encouraged non-use of opioids and other illicit substances. Has naloxone. Discontinuing buprenorphine increases the risk of overdose upon return to illicit opioid use. Use of alcohol or benzodiazepines with buprenorphine increases the risk of overdose and . Education provided about safe storage of medications. Encouraged participation in recovery groups/counseling services. Contact office with questions or concerns. 06/22/2024 Other Patient agrees to take medication as prescribed. Discussed medication side effects, adverse effects, risks, benefits, as well as interactions. Encouraged non-use of opioids and other illicit substances. Has naloxone. Discontinuing buprenorphine increases the risk of overdose upon return to illicit opioid use. Use of alcohol or benzodiazepines with buprenorphine increases the risk of overdose and . Education provided about safe storage of medications. Encouraged participation in recovery groups/counseling services. Contact office with questions or concerns. 07/21/2024 Other Patient agrees to take medication as prescribed. Discussed medication side effects, adverse effects, risks, benefits, as well as interactions. Encouraged non-use of opioids and other illicit substances. Has naloxone. Discontinuing buprenorphine increases the risk of overdose upon return to illicit opioid use. Use of alcohol or benzodiazepines with buprenorphine increases the risk of overdose and . Education provided about safe storage of medications. Encouraged participation in recovery groups/counseling services. Contact office with questions or concerns. Patient may self-administe r their own medications or may self-administe r their own oral medications per [place] Protocol. 08/02/2024 Other PDMP WITHOUT ISSUES 08/20/2024 Other Discussed medication side effects, adverse effects, risks, benefits, as well as interactions. Encouraged non-use of opioids. Has naloxone. Recommended participation in recovery groups and/or counseling services. May contact office with questions or concerns. Patient may self-administe r their own medications or may self-administe r their own oral medications per [place] Protocol. 09/15/2024 Other Patient agrees to take medication as prescribed. Discussed medication side effects, adverse effects, risks, benefits, as well as interactions. Encouraged non-use of opioids and other illicit substances. Has naloxone. Discontinuing buprenorphine increases the risk of overdose upon return to illicit opioid use. Use of alcohol or benzodiazepines with buprenorphine increases the risk of overdose and . Education provided about safe storage of medications. Encouraged participation in recovery groups/counseling services. Contact office with questions or concerns. Patient may self-administe r their own medications or may self-administe r their own oral medications per [place] Protocol. 10/14/2024 Other Patient agrees to take medication as prescribed. Discussed medication side effects, adverse effects, risks, benefits, as well as interactions. Encouraged non-use of opioids and other illicit substances. Has naloxone. Discontinuing buprenorphine increases the risk of overdose upon return to illicit opioid use. Use of alcohol or benzodiazepines with buprenorphine increases the risk of overdose and . Education provided about safe storage of medications. Encouraged participation in recovery groups/counseling services. Contact office with questions or concerns. Patient may self-administe r their own medications or may self-administe r their own oral medications per [place] Protocol. 11/11/2024 Other Patient agrees to take medication as prescribed. Discussed medication side effects, adverse effects, risks, benefits, as well as interactions. Encouraged non-use of opioids. Encouraged participation in recovery groups. Patient may contact office with questions or concerns. 12/09/2024 Other Patient agrees to take medication as prescribed. Discussed medication side effects, adverse effects, risks, benefits, as well as interactions. Encouraged non-use of opioids and other illicit substances. Has naloxone. Discontinuing buprenorphine increases the risk of overdose upon return to illicit opioid use. Use of alcohol or benzodiazepines with buprenorphine increases the risk of overdose and . Education provided about safe storage of medications. Encouraged participation in recovery groups/counseling services. Contact office with questions or concerns. Patient may self-administe r their own medications or may self-administe r their own oral medications per [place] Protocol. Plan Of Treatment Pending Test Test Name Order Date MAMMOGRAM BILAT, SCREENING 01/21/2019 CMP13 01/21/2019 Next Appt Details Provider Name:Michael Rodgers , 01/10/2025 10:20:00 AM, [address], [place], [address], Insurance Providers Payer Name Payer Address Payer Phone Subscriber Number Group Number Insured Name Patient Relationship to Insured Coverage Start Date Coverage End Date [facility] Claims Department [address] [place] [phone] [id number] Marlena Tristan Self - patient is the insured 1 4 [facility] Claims Department [address] [place] [phone] [id number] Marlena Tristan Self - patient is the insured 4 5 [facility] Claims Department [address] [place] [phone] [id number] Marlena Tristan Self - patient is the insured 5 [facility] Att Claims Department [address] [place] [phone] [id number] Marlena Tristan Self - patient is the insured 1 4 MED[place]ID [address] [place] [address] [id number] Marlena Tristan Self - patient is the insured 4 4 [employer] [facility] [address] [place] [address] [id number] Marlena Tristan Self - patient is the insured 4 4 [facility] [employer] [facility] Attn Claims Department [address] [place] [address] [id number] Marlena Tristan Self - patient is the insured 5 Medications Administered Medication Instructions Date of Administration Dosage Notes Sublocade 05/27/2019 1.5 mL Sublocade 06/24/2019 300 mg employee benefits administrator: [employer] Sublocade 07/22/2019 100 mg Dietary Services Director: Indivior SN: [id number]. Patient tolerated well. Sublocade 08/19/2019 300 mg SN: [id number] Dietary Services Director: [employer] Sublocade 09/16/2019 300 mg SN: [id number]. Dietary Services Director: [employer] Sublocade 10/19/2019 300 mg SN: [id number]. Dietary Services Director: [employer]iv[employer]. Sublocade 11/16/2019 100 mg SN: [id number]. Dietary Services Director: [employer]. Patient tolerated well. Sublocade 12/14/2019 100 mg SN: [id number]. Dietary Services Director: Indivior. Sublocade 01/11/2020 100 mg Sublocade 01/11/2020 100 mg Sublocade 01/11/2020 100 mg Sublocade 01/11/2020 100 mg Sublocade 02/08/2020 100 mg SN: [id number]. Dietary Services Director: [employer]ivior. Patient tolerated well. Sublocade 03/07/2020 100 SN: [id number]. Dietary Services Director: Indiv[employer]. Patient tolerated well. Sublocade 04/04/2020 300 mg LEFT LOWER ABD OMEN Sublocade 05/02/2020 300 mg Sublocade 05/30/2020 300 mg Left periumbil ical Vivitrol 01/06/2019 380 mg Tolerated well . Instructed to rub site over next couple days to prevent knot. Verbalized understanding. Vivitrol 02/03/2019 380 mg Dietary Services Director A lkermes. Pt tolerated well. Voiced no questions or concerns at present time. Vivitrol 03/03/2019 380 mg Dietary Services Director A lkermes. Pt tolerated well. Voiced no questions or concerns at present time. Medical (General) History Medical History History ICD Code Anxiety Tobacco dependence Opioid use disorder Primary insomnia Opioid use disorder, severe, dependence Major depressive disorder, single episod e, unspecified Surgical History Surgery Date(Month/Year) Lt. ACL Tubal cholecystectomy 11/2023 Hospitalization History Reason Date(Month/Year) Inflammation in the intestines S/P left femur fracture as child
--- OUTSIDE RECORDS SUMMARY | 2025-01-01 16:35 | XMS_ITS | Clinical Summary ---
Author Organization [facility] Address [address] [place] [address] Care Team Providers Care [employer] Name Role Phone Unavailable Primary Care Provider Unavailabl e Source Comments [facility],non-owned Affiliates and Associated Physician Practices is amultiple site organization consisting of ambulatory clinics and hospital sitesin [place], [place], [place] and [place]. This disclosure is being madepursuant to the Care Everywhere program and may not contain all information available regarding this patient. Last updated 18.[facility] Allergies No known active allergies Medications * Be aware that medications may not be up to date on this document. Alwaysverify current medications with the patient. NAPROXEN SODIUM PO Active citalopram (CELEXA) 40 MG tablet Take 40 mg by mouth once daily Active ALPRAZolam (XANAX PO) Active RANITIDINE HCL PO Active nitrofurantoin monohyd macro crystals (MACROBID) 100 MG capsule Take 1 Cap by mouth 2 times daily with morning and evening meal 14 Cap 7 Active Additional Information Patient not taking.Reported on 08/14/2016 fluticasone propionate (FLONASE) 50 MCG/ACT nasal spray [place] 1 [place] into each nostril 2 times daily 1 Bottle 7 Active Social History Tobacco Use Types Packs/Day Years Used Date Smoking Tobacco: Every Day Comments Unknown Sex and Gender Information Value Date Recorded Sex Assigned at Not on file Legal Sex Female 5:08 AM [employer] Gender Identity Not on file Sexual Orientation Not on file Last Filed Vital Signs Vital Sign Reading Time Taken Comments Blood Pressure 110/70 08/14/2016 8:27 AM CDT Pulse 90 08/14/2016 8:27 AM CDT Temperature 37.1 C (98.7 F) 08/14/2016 8:27 AM CDT Respiratory Rate - - Oxygen Saturation 99% 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 Inhaled Oxygen Concentration - - Weight 54.4 kg (120 lb) 08/14/2016 8:27 AM CDT Height 162.6 cm (5' 4) 08/14/2016 8:27 AM CDT Body Mass Index 20.6 08/14/2016 8:27 AM CDT Plan of Treatment Health Maintenance Due Date Last Done Comments COLOGUARD (AGES 45-75) - COL ON CA SCREENING 1973 COLON MONITORING 1973 COLONOSCOPY - COLON CA SCREENING 1973 CT COLONOGRAPHY - COLON CA SCREENING 1973 Colorectal Cancer Screening 1973 FIT - COLON CA SCREENING 1973 FLEX SIG - COLON CA SCREENING 1973 LIPID TESTING 1973 MAMMOGRAM 1973 HIV SCREENING 1988 HEPATITIS C SCREENING 11/16/1991 DTAP/TDAP/TD VACCINES (1 - Tdap) 1992 HEPATITIS B VACCINE (1 of 3 - 19+ 3-dose series) 1992 PNEUMOCOCCAL VACCINE 50+ (1 of 2 - PCV) 1992 PAP SMEAR 1994 ZOSTER VACCINE (1 of 2) 11/21/2023 DEPRESSION SCREENING 04/28/2024 COVID-19 VACCINE (1 - 2023-2 5 season) 2024 INFLUENZA VACCINE (#1) 2024 HIB VACCINE Aged Out No longer eligi ble based on patient's age to complete this topic HPV VACCINE Aged Out No longer eligi ble based on patient's age to complete this topic MENINGOCOCCAL (Group B) VACC INE SHARED DECISION-MAKING Aged Out No longer eligibl e based on patient's age to complete this topic MENINGOCOCCAL GROUPS A/C/Y/W VACCINE Aged Out No longer eligible b ased on patient's age to complete this topic Insurance [facility]
--- NOTE | 2025-01-01 16:41 | ED.SKABFB ---
HPI - Skin/Abscess/Foreign Bdy General Chief complaint: Skin/Abscess/Foreign Body Stated complaint: poison radha Time Seen by Provider: 01/01/25 16:40 Source: patient and RN notes reviewed Mode of arrival: ambulatory Limitations: no limitations History of Present Illness HPI narrative: 49-year-old female presents Express Care complaining of rash the last 2 weeks. Patient says 2 weeks ago her was going to treat down poison radha on a over it when she was near the tree. Since then the patient developed a pruritic rash started on her abdomen is not scattered throughout her arms and legs. Patient has been doing poison radha scrubs and calamine lotion, anti itch cream without relief. Patient denies any significant past medical history. Related Data Home Medications ?Medication ?Instructions ?Recorded ?Confirmed ?Last Taken ?Type buprenorphine 4 mg-naloxone 1 mg 1 film sublingual BID 11/06/21 10/16/23 Unknown History sublingual film (Suboxone) gabapentin 600 mg tablet 600 mg PO HS 11/06/21 10/16/23 Unknown History dicyclomine 10 mg capsule 10 mg PO TID PRN Stomach pain 08/25/23 10/16/23 Unknown History omeprazole 20 mg capsule,delayed 20 mg PO DAILY 08/25/23 10/16/23 Unknown History release Allergies Allergy/AdvReac Type Severity Reaction Status Date / Time doxycycline AdvReac Nausea and Verified 08/25/23 18:56 Vomiting Review of Systems Review of Systems: CONSTITUTIONAL: Denies fever, chills, or sweats. EYES: Denies visual changes, redness, or discharge. ENT: Denies rhinorrhea, congestion, sore throat, or otalgia. CARDIOVASCULAR: Denies chest pain, palpitations, or edema. RESPIRATORY: Denies cough or dyspnea. GASTROINTESTINAL: Denies abdominal pain, nausea, vomiting, or diarrhea. GENITOURINARY: Denies dysuria or hematuria. SKIN: Positive for rash and itching. MUSCULOSKELETAL: Denies back pain, joint pain, or myalgia. NEUROLOGIC: Denies headache, numbness, or weakness. PSYCHIATRIC: Denies anxiety or depression. All other systems reviewed are negative, except as documented in HPI. ON LICENSE OF [facility] Past Medical History Medical History Vaginal delivery X2 Smoker Substance abuse Surgical History Surgical History History of repair of anterior cruciate ligament of left knee History of tubal ligation Family History Family History Other No significant family history Father Hypertension Mother Heart disease Social History Social History Smoking packs per day: 0.25 Smoking cigarettes per day: 5.0 Years smoked: 25 Smoking pack-years: 6.25 Smoking status: Former smoker Tobacco type: cigarettes Second hand tobacco smoke exposure: Yes Additional smoking assessment comments: 08/25/2023 quit 1.5years ago Alcohol intake: former Substance use: former Substance use type: former substance user Other substance usage details: Marlena 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 There is no relevant family history pertinent to the patient complaint. Exam Narrative: GENERAL: This is a well-nourished, well-developed adult, in no apparent distress. They are non ill-appearing, nontoxic appearing. HEAD: normocephalic, atraumatic. EYES: Sclera clear/white. Conjunctiva normal. Vision is grossly intact. Extraocular movements intact EARS: External ears normal, Hearing grossly intact. NOSE: External nose normal THROAT: Mucous membranes moist, NECK: Neck supple, CARDIOVASCULAR: Regular rate and rhythm RESPIRATORY: Respiratory rate normal, respiratory effort nonlabored, no respiratory distress SKIN: There is erythematous papular vesicular rash scattered scaly throughout the patient's arms, legs improved on the patient's that abdomen near her umbilicus. Rash is pruritic, nontender, no reflux was, no induration, no exudate. NEURO: awake, alert, and oriented to person, place and time. There were no obvious focal neurologic abnormalities. EXTREMITIES: No joint tenderness, effusion, or edema noted. Course Course Emergency Course: Portions of this record may have been created with voice recognition software Level of Care: Express Care Visit Vital Signs Vital signs: Vital Signs Temperature 98.2 F 01/01/25 16:34 Pulse Rate 63 01/01/25 16:34 Respiratory Rate 20 01/01/25 16:34 Blood Pressure 129/72 01/01/25 16:34 Pulse Oximetry 100 01/01/25 16:34 Oxygen Delivery Room Air 01/01/25 16:34 Temperature 98.2 F 01/01/25 16:34 Pulse Rate 63 01/01/25 16:34 Respiratory Rate 20 01/01/25 16:34 Blood Pressure 129/72 01/01/25 16:34 Pulse Oximetry 100 01/01/25 16:34 Oxygen Delivery Room Air 01/01/25 16:34 Reviewed MDM - Skin/Abscess/Foreign Bdy MDM Narrative Medical decision making narrative: Patient likely has poison radha dermatitis. Will prescribe prednisone taper given length of symptoms and contained to have new lesions form. Discussed physical exam findings. Advised supportive measures and signs/symptoms to go to the ER. Pt is appropriate for outpt treatment and f/u. Differential Diagnosis Differential diagnosis: Likely cellulitis, eczema, impetigo, contact dermatitis and other (Poison radha) Critical Care Time Critical Care Time Critical Care Time: No Discharge Plan Discharge Clinical Impression: Contact dermatitis Qualifiers: Contact dermatitis type: unspecified Contact dermatitis trigger: unspecified trigger Qualified Code(s): L25.9 - Unspecified contact dermatitis, unspecified cause Patient Disposition: Home Condition: Stable Instructions: Poison Radha (ED) Additional Instructions: Take the prednisone as directed. Take it in the morning and take it with food. You may use calamine lotion, camphor, hydrocortisone cream, Benadryl cream as needed for itchiness symptoms. You may also take Zyrtec or Claritin as needed for allergy or itchiness symptoms. Follow-up PCP in 3-5 days. If you develop any worsening redness, swelling, discharge, fevers, breathing problems, or any other concerns please go to the ER immediately. Patient Language: Somali Prescriptions: New prednisone 10 mg tablet See Taper PO DAILY 5 Days Qty: 42 0RF Taper: Prednisone Taper from 60 mg;12 days 60 mg DAILY for 2 Days and 0 Hour 50 mg DAILY for 2 Days and 0 Hour 40 mg DAILY for 2 Days and 0 Hour 30 mg DAILY for 2 Days and 0 Hour 20 mg DAILY for 2 Days and 0 Hour 10 mg DAILY for 2 Days and 0 Hour No Action buprenorphine-naloxone [Suboxone] 4-1 mg Film 1 film SUBLINGUAL BID gabapentin 600 mg Tablet 600 mg PO HS omeprazole 20 mg Capsule,Delayed Release(Dr/Ec) 20 mg PO DAILY dicyclomine [Bentyl] 10 mg Capsule 10 mg PO TID PRN (Reason: Stomach pain) Follow-up/Referrals: Micahel Rodgers MD [Primary Care Provider, Hospitalist] Time of Disposition: 16:47
== END 2025-01-01 16:52 | disposition home or self-care (01) ==
PROVIDERS: PCP Internal Medicine
DX: L25.9 Unspecified contact dermatitis, unspecified cause (principal); Z87.891 Personal history of nicotine dependence
CPT/HCPCS: 99213; G0463